=== PATIENT | female | born 1960 | race Caucasian/White ===

== ENCOUNTER 2017-03-12 09:14 | Emergency (ER) | payer SELFPAY ==
[~2017-03-12] VITALS: Ht 175.3 cm; Wt 88.0 kg
[~2017-03-12 09:14] MED LIST: CARI1TAB34 PO; DYAZ PO; GUAI100S6 PO; HYDR10TA16 PO; XANA0.5T2 PO; Z.0.UNKNOWN; ZITH500T PO
[2017-03-12 09:17] VITALS: BP 179/84; PULSE 66; RESP 16; TEMP 98.2; O2SAT 98
[2017-03-12] MEDS ORDERED: LISI40TA PO (09:31)
[2017-03-12] MEDS ORDERED: OMEP40CA2 PO (09:31)
[2017-03-12] MEDS ORDERED: ALLO100T PO (09:31)
[2017-03-12] MEDS ORDERED: ALPR.5 PO (09:35)
--- NOTE | 2017-03-12 09:42 | PD ---
HPI Chief Complaint: ENT Complaint Time Seen by Provider: 09:25 Travel History International Travel<30 days: No Contact w/Intl Traveler<30days: No Traveled to known affect area: No History of Present Illness HPI 57-year-old female presents to the emergency room for evaluation of throat discomfort for the past month. States it feels like someone is choking her. She went to her primary care physician 3 weeks ago who told her she may have thyroid disease. Patient states she could not get labs performed outpatient because she does not have insurance. She came to the emergency room in hopes that she get them done today. She denies any other significant complaints. No difficulty eating, drinking, or breathing. Symptoms are worse at night. She smokes cigarettes. History Social History Alcohol Use: Yes (RARE) Tobacco Use: Yes (1 PPD) Allergies-Medications (Allergen,Severity, Reaction): Coded Allergies: Sulfa (Sulfonamide Antibiotics) (Unverified Allergy, Severe, Rash, 11/18/16 ) iodine (Unverified Allergy, Severe, Rash, 11/18/16) iohexol (Unverified Allergy, Severe, PT NEEDS TO BE PREMEDICATED, 11/18/16) morphine (Unverified Allergy, Severe, Rash, 11/18/16) paroxetine (Unverified Allergy, Severe, Rash, 11/18/16) penicillin G (Unverified Allergy, Severe, Rash, 11/18/16) potassium iodide (Unverified Allergy, Severe, Rash, 11/18/16) povidone-iodine (Unverified Allergy, Severe, Rash, 11/18/16) rofecoxib (Unverified Allergy, Severe, Rash, 11/18/16) sodium iodide (Unverified Allergy, Severe, Rash, 11/18/16) sodium iodide (Unverified Allergy, Severe, Rash, 11/18/16) sumatriptan (Unverified Allergy, Severe, Rash, 11/18/16) tramadol (Unverified Allergy, Severe, Rash, 11/18/16) Fish Containing Products (Unverified Allergy, Intermediate, welts and rash , 11/18/16) levofloxacin (Unverified Allergy, Intermediate, tongue swells, 11/18/16) mushroom (Unverified Allergy, Intermediate, rash, 11/18/16) Reported Meds & Prescriptions Reported Meds & Active Scripts Active Reported Xanax (Alprazolam) 0.5 Mg Tab 0.5 Mg PO TID PRN Allopurinol 100 Mg Tab 100 Mg PO DAILY Lisinopril 40 Mg Tab 40 Mg PO DAILY Omeprazole 40 Mg Cap 40 Mg PO DAILY Dyazide 37.5/25 Mg Cap (Triamterene/Hctz) 1 Cap Cap 1 Cap PO DAILY Lortab 10/500 (Acetaminophen/Hydrocodone Bitart) 10 Mg/500 Mg Tab 1 Tab PO Q4HPRN FOR PAIN Review of Systems Except as stated in HPI: all other systems reviewed are Neg Physical Exam Narrative GENERAL: Well-nourished, well-developed patient. SKIN: Focused skin assessment warm/dry. HEAD: Normocephalic. EYES: No scleral icterus. No injection or drainage. NECK: Supple, trachea midline. No JVD or lymphadenopathy. ENT: Mucosa pink and moist. No erythema or exudates. No uvular edema. No uvular , palatal, or tonsillar deviation. Airway patent. Nasal turbinates appear normal without nasal blood, purulent drainage or septal hematoma. CARDIOVASCULAR: Regular rate and rhythm without murmurs, gallops, or rubs. RESPIRATORY: Breath sounds equal bilaterally. No accessory muscle use. Data Data Last Documented VS Vital Signs Date Time Temp Pulse Resp B/P (MAP) Pulse Ox O2 Delivery O2 Flow Rate FiO2 03/12/17 09:17 98.2 66 16 179/84 (115) 98 Room Air [facility] Medical Screen Exam Complete: Yes Emergency Medical Condition: No Differential Diagnosis Throat discomfort Narrative Course 57-year-old female presents to the emergency room for evaluation of throat discomfort for the past one month. States it "feels like someone is choking me. " She went to her PCP 3 weeks ago who told her it was likely thyroid problems and she came to the emergency room to have tests performed because she does not have insurance. Physical exam is reassuring. Vital signs stable. Airway is patent with no visible masses. Neck is supple, trachea midline. No JVD or lymphadenopathy. There are no urgent or emergent indications for thyroid studies at this time. Patient was connected with a Medicaid specialist to help establish insurance. Told to follow up with her PCP or return for worsening symptoms. A medical screening exam was performed: At the time of evaluation the presenting medical condition was determined not to be of an emergent nature. The patient was given the option of receiving additional care, but declined. Patient was given options for additional community resources from which to obtain care. The Patient Has Been advised to seek medical attention for their presenting complaint. The patient has been advised to return to the ER at any time if an emergent condition develops. Primary Impression: Encounter for medical screening examination Disposition: 01 DISCHARGE HOME Condition: Stable Sandra Bruno Mar 12, 2017 09:42
== END 2017-03-12 09:53 | disposition left against medical advice (07) ==
LOC: NEPK 09:14
DX: R07.0 Pain in throat (principal)
CPT/HCPCS: 99281